=== PATIENT | female | born 1955 | race Caucasian/White ===

== ENCOUNTER 2021-11-28 14:46 | Outpatient (CLI) | payer OTHER, SELFPAY ==
--- NOTE | 2021-11-28 15:00 | CRLHL7_ITS ---
For Patients: As a result of the Century Cures Act, medical imaging exams and procedure reports are released immediately into your electronic medical record. You may view this report before your referring provider. If you have questions, please contact your health care provider. BILATERAL SCREENING MAMMOGRAM WITH COMPUTER-AIDED DETECTION AND TOMOSYNTHESIS TECHNIQUE: CC and MLO views were obtained. These mammographic images have been obtained using full-field digital technique. These mammographic images were interpreted with the benefit of computer-aided detection. Breast Tomosynthesis was used in this interpretation. COMPARISON FILM: 11/25/20, 11/24/19, 10/29/18. FINDINGS: There are scattered areas of fibroglandular density IMPRESSION: There is no radiographic evidence for malignancy. ASSESSMENT: BI-RADS Category 1: Negative RECOMMENDATION: Routine screening mammogram in 1 year. A lay language report of this examination will be provided to the patient. Dexter Elder M.D. Diagnostic Radiologist [email or web address] WING/Dictated by: Dexter Elder MD @ 11/29/2021 8:30:00 AM (Electronically Signed)
== END 2021-11-28 14:47 | disposition home or self-care (01) ==
LOC: MAMMO 14:49
PROVIDERS: PCP Family Medicine; Visit Provider Family Medicine
DX: Z12.31 Encounter for screening mammogram for malignant neoplasm of breast (principal)
CPT/HCPCS: 77063; 77067

== ENCOUNTER 2022-04-08 23:26 | Emergency (ER) | payer BC, SELFPAY ==
[2022-04-08 23:32] VITALS: BP 191/88; PULSE 86; RESP 22; TEMP 36.3; O2SAT 94; BMI 33.3
[2022-04-09] VITALS (10 sets, daily range): BP systolic 145–179; BP diastolic 76–88; PULSE 57–59; O2SAT 93–96
--- NOTE | 2022-04-09 00:49 | CRLHL7_ITS ---
For Patients: As a result of the Century Cures Act, medical imaging exams and procedure reports are released immediately into your electronic medical record. You may view this report before your referring provider. If you have questions, please contact your health care provider. INDICATION: abrupt Left sided frontal reoccurring headaches COMPARISON: none TECHNIQUE: A CT volumetric acquisition was performed of the brain without IV contrast. Please note that all CT scans at this facility use dose modulation, iterative reconstruction, and/or weight-based dosing when appropriate to reduce radiation dose to as low as reasonably achievable. FINDINGS: The CT images reveal a normal appearance of the cerebral ventricles and basal cisterns. There is no evidence of intracranial hemorrhage, tissue infarction or mass effect. The mastoid air cells and middle ear cavities are clear. The calvarium appears intact. Mild bilateral maxillary sinus disease with mucosal thickening. IMPRESSION: No acute intracranial pathology. No mass or hemorrhage. No hydrocephalus. Please note that all CT scans at this facility use dose modulation, iterative reconstruction, and/or weight-based dosing when appropriate to reduce radiation dose to as low as reasonably achievable. Dictated by Dexter Elder MD @ 04/09/2022 2:19:16 AM (Electronically Signed)
[2022-04-09] MEDS: 0.9 % SODIUM CHLORIDE 1000 ml 1,000 ML IV (01:03)
[2022-04-09] MEDS: ONDANSETRON 2 MG/ML inj 4 MG IVP (01:04)
[2022-04-09] MEDS: KETOROLAC 30 MG/ML inj IVP (01:04)
[2022-04-09 01:05] LABS: Basophils Absolute Auto 0.01 K/uL (0.00-0.30); Basophils Percent Auto 0.1 % (0.0-3.0); Eosinophils Absolute Auto 0.08 K/uL (0.00-0.50); Eosinophils Percent Auto 1.2 % (0.0-7.0); Hematocrit 37.9 % (33.0-51.0); Hemoglobin* 12.9 gm/dL (12.0-16.0); Immature Granulocytes Abs Auto 0.07 K/uL (0.00-0.30); Lymphocytes Percent Auto 18.6 % (20-44); Mean Corpuscular HGB Conc 34 gm/dL (32-36); Mean Corpuscular Hemoglobin 30 pg (26-34); Mean Corpuscular Volume 89 fL (80-100); Neutrophils Percent Auto 75.1 % (42.0-72.0); Platelet Count* 244 K/uL (140-440); RDW Coefficient of Variation % 12.6 % (11.5-15.5); Red Blood Count 4.28 m/uL (4.00-5.20); White Blood Count* 6.81 K/uL (4.50-11.00)
[2022-04-09 01:10] LABS: Slide Review Reflex No
[2022-04-09 01:17] LABS: Chloride* 104 mmol/L (96-114); Sodium* 136 mmol/L (135-149)
[2022-04-09 01:20] LABS: Blood Urea Nitrogen* 16 mg/dL (7-30); Carbon Dioxide* 25 mmol/L (20-32); Creatinine* 0.5 mg/dL (0.5-1.5); Est. Creatinine Clearance* 42.89; Estimated Glomerular Filt Rate 105 ml/min; Glucose* 129 mg/dL (60-115)
[2022-04-09 01:21] LABS: Calcium* 9.2 mg/dL (8.4-10.6)
[2022-04-09 01:22] LABS: D Dimer Quantitative* 0.46 ug/ml (0.00-0.50)
[2022-04-09 01:23] LABS: C Reactive Protein* < 0.5 mg/dL (0.5-1.0)
--- NOTE | 2022-04-09 01:38 | ED.NURSE ---
Patient ambulatory to
[2022-04-09 01:41] LABS: Erythrocyte SedimentationRate* 6 mm/hr (2-20)
--- NOTE | 2022-04-09 01:51 | ED_ITS ---
HPI - General Adult General Chief complaint: Nausea/Vomiting Stated complaint: Headache, Nausea Time Seen by Provider: 04/09/22 00:38 History of Present Illness HPI narrative: 66-year-old woman presenting to the emergency department with complaint of vomiting though with further question is clearly preceded by headache. Over the last month has had 3 or 4 sudden onset of left parietal temporal area headache rather severe then followed by numerous episodes of vomiting. She has been t ypically needing to rest and find a quiet space for some hours but that in addition to acetaminophen has not managed to control today's headache. Is having some burning in her stomach as well presumably from the vomiting. Headache has been present now for about 10 hours. I turn off the lights when I enter the room and this does seem to help but she would not note that she was particularly photophobic. No loss of sensation. No focal weakness. No discoordination. No is quite healthy and does not have a history of headaches prior to this last month. Does not wake from sleep with these headaches. They tend to be abrupt onset and self-limited. She has not been struggling with sinus disease. Does not have neck or back pain. Does not have high blood pressure. Is no longer smoking. No shortness of breath. No personal or family history of rheumatological/immunological disorders, no history of aneurysms or other intracerebral events. 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 Related Data Home Medications Medication Instructions Recorded Confirmed aspirin 81 mg capsule 81 mg PO DAILY 04/08/22 04/08/22 cholecalciferol (vitamin D3) .ROUTE 04/09/22 ferrous sulfate PO 04/09/22 [id number]-[id number]-FA-vit K PO 04/09/22 Previous Rx's Medication Instructions Recorded ondansetron 4 mg disintegrating 4 mg PO Q4-6H PRN nausea/vomiting 04/09/22 tablet #12 tabs Allergies Allergy/AdvReac Type Severity Reaction Status Date / Time ciprofloxacin Allergy Unknown Verified 04/08/22 23:39 erythromycin base Allergy Unknown Verified 04/08/22 23:39 hydrocodone Allergy Unknown Verified 04/08/22 23:39 Penicillins Allergy Unknown Verified 04/08/22 23:39 Sulfa (Sulfonamide Allergy Unknown Verified 04/08/22 23:39 Antibiotics) sulfamethoxazole Allergy Unknown Verified 04/08/22 23:39 [From Bactrim] trimethoprim [From Bactrim] Allergy Unknown Verified 04/08/22 23:39 codeine Allergy Vomiting Verified 04/08/22 23:39 Review of Systems Status of ROS: Reports: 10 or more systems reviewed and unremarkable except as noted in History and below [facility] Medical History Cervical cancer History of alcohol abuse Tubular adenoma of colon Surgical History H/O tubal ligation H/O: hysterectomy Social History Smoking Status: Former smoker Do you use any of these nicotine containing products: None Second hand tobacco smoke exposure: No How often do you have a drink containing alcohol: never AUDIT-C Alcohol total score: 0 Non-prescribed substance use: denies use Exam Narrative: Exam Narrative: Pleasant. NAD. [place] in style of conversation. Cranial nerves 2-12 look to be intact. Pupils are equal. No nystagmus. Head is atraumatic. No facial swelling erythema or tenderness. There is not particularly any tenderness or discrete tenderness in the area of the temples no pulsatile swelling/mass or erythema appreciated. She is breathing easily. Lungs are clear. There is no pain to palpation about the paracervical musculature the midline neck or back or trapezial musculature. Neck is supple. TMs are clear bilaterally. No sensory deficits apparent. Moving all extremities without difficulty. Well perfused peripherally. She has no lower extremity edema. Heart in a regular rate and rhythm without murmur rub or gallop. Abdomen is soft. No masses appreciated. Mildly tender in the epigastrium. Normal bowel sounds. Const: Vital Signs, click to edit/add: Vital Signs - 24 hr 04/08/22 23:32 Temperature 97.3 F L Pulse Rate [Pulse Oximeter] 86 Respiratory Rate 22 Blood Pressure [Le ft Upper Arm] 191/88 H Pulse Oximetry 94 Oxygen Delivery Me thod Room Air Documenting provider has reviewed patient's vital signs: yes Course Vital Signs Vital signs: Initial Vital Signs Temperature 97.3 F L 04/08/22 23:32 Temperature Source Temporal Artery Scan 04/08/22 23:32 Pulse Rate 86 04/08/22 23:32 Respiratory Rate 22 04/08/22 23:32 Blood Pressure 191/88 H 04/08/22 23:32 Blood Pressure Mean 122 04/08/22 23:32 Blood Pressure Position Supine 04/08/22 23:32 Pulse Oximetry 94 04/08/22 23:32 Oxygen Delivery Method 04/08/22 23:32 Vital Signs Temperature 97.3 F L 04/08/22 23:32 Pulse Rate 86 04/08/22 23:32 Respiratory Rate 22 04/08/22 23:32 Blood Pressure 191/88 H 04/08/22 23:32 Pulse Oximetry 94 04/08/22 23:32 Oxygen Delivery Method 04/08/22 23:32 Temperature 97.3 F L 04/08/22 23:32 Pulse Rate 86 04/08/22 23:32 Respiratory Rate 22 04/08/22 23:32 Blood Pressure 191/88 H 04/08/22 23:32 Pulse Oximetry 94 04/08/22 23:32 Oxygen Delivery Method 04/08/22 23:32 Medical Decision Making MDM Narrative Medical decision making narrative: Reassuring is that headaches are self-limiting. Concerning is new onset. She does not appear to have any sensory deficits. Offered treatment for her headache. IV is established was given L normal saline ketorolac and Zofran and on reassessment was already feeling notably improved. She did not feel if she needed anything specifically for the abdominal burning. I do think it is also reasonable to do some basic imaging looking for any suggestion of abnormality. Include head CT. Labs are also drawn looking for any red flags including screening for temporal arteritis. Labs are reassuring including normal ESR. By my read noncontrast head CT looks WNL. Preserved ventricle spaces. No evidence of acute abnormality. Over-read pending. Lab Data Labs: Lab Results 04/09/22 04/09/22 04/09/22 Range/Units 00:25 00:25 00:25 WBC 6.81 (4.50-11.00) K/uL RBC 4.28 (4.00-5.20) m/uL Hgb 12.9 (12.0-16.0) gm/dL Hct 37.9 (33.0-51.0) % MCV 89 (80-100) fL MCH 30 (26-34) pg MCHC 34 (32-36) gm/dL RDW Coeff of Ivett 12.6 (11.5-15.5) % Plt Count 244 (140-440) K/uL Neut % (Auto) 75.1 H (42.0-72.0) % Lymph % (Auto) 18.6 L (20-44) % [place] % (Auto) 4.0 (0.0-11.0) % Eos % (Auto) 1.2 (0.0-7.0) % Baso % (Auto) 0.1 (0.0-3.0) % Neut # (Auto) 5.10 (1.7-7.0) K/uL Lymph # (Auto) 1.30 (0.90-2.90) K/uL [place] # (Auto) 0.30 (0.00-0.90) K/UL Eos # (Auto) 0.08 (0.00-0.50) K/uL Baso # (Auto) 0.01 (0.00-0.30) K/uL ESR 6 (2-20) mm/hr D-Dimer Quant (PE/DVT) 0.46 (0.00-0.50) ug/ml Sodium (135-149) mmol/L Potassium (3.6-5.1) mmol/L Chloride (96-114) mmol/L Carbon Dioxide (20-32) mmol/L BUN (7-30) mg/dL Creatinine (0.5-1.5) mg/dL Estimated Creat Clear Estimated GFR ml/min Glucose (60-115) mg/dL Calcium (8.4-10.6) mg/dL C-Reactive Protein (0.5-1.0) mg/dL 04/09/22 Range/Units 00:25 WBC (4.50-11.00) K/uL RBC (4.00-5.20) m/uL Hgb (12.0-16.0) gm/dL Hct (33.0-51.0) % MCV (80-100) fL MCH (26-34) pg MCHC (32-36) gm/dL RDW Coeff of [place]ett (11.5-15.5) % Plt Count (140-440) K/uL Neut % (Auto) (42.0-72.0) % Lymph % (Auto) (20-44) % [place] % (Auto) (0.0-11.0) % Eos % (Auto) (0.0-7.0) % Baso % (Auto) (0.0-3.0) % Neut # (Auto) (1.7-7.0) K/uL Lymph # (Auto) (0.90-2.90) K/uL [place] # (Auto) (0.00-0.90) K/UL Eos # (Auto) (0.00-0.50) K/uL Baso # (Auto) (0.00-0.30) K/uL ESR (2-20) mm/hr D-Dimer Quant (PE/DVT) (0.00-0.50) ug/ml Sodium 136 (135-149) mmol/L Potassium 4.0 (3.6-5.1) mmol/L Chloride 104 (96-114) mmol/L Carbon Dioxide 25 (20-32) mmol/L BUN 16 (7-30) mg/dL Creatinine 0.5 (0.5-1.5) mg/dL Estimated Creat Clear 42.89 Estimated GFR 105 ml/min Glucose 129 H (60-115) mg/dL Calcium 9.2 (8.4-10.6) mg/dL C-Reactive Protein < 0.5 L (0.5-1.0) mg/dL Discharge Plan Discharge Clinical Impression: Headache Patient Disposition: Home w/ Parent or Adult Condition: Improved Instructions: Acute Headache (ED) Additional Instructions: Do stay well-hydrated trying to drink 2-3 L of water daily. Try to get in little heart pumping exercise every day as well. Get regular and quality sleep. Can try Excedrin equivalent medication for relief of headache in the future; includes acetaminophen, aspirin and caffeine. It might be worth scheduling follow-up in clinic to explore further potential cause. Zofran to pharmacy if needed. Return for recurrence of severe unremitting headache, intractable vomiting, associated fever, new and focal weakness, discoordination. Prescriptions: New ondansetron 4 mg tablet,disintegrating 4 mg PO Q4-6H PRN (Reason: nausea/vomiting) Qty: 12 0RF No Action aspirin 81 mg capsule 81 mg PO DAILY [id number]-fhh-xoir-FA-vit K [Adults Multivitamin] PO ferrous sulfate [Iron (ferrous sulfate)] PO cholecalciferol (vitamin D3) .ROUTE Follow Up/Referrals: Bc Chavez MD [Primary Care Provider] - Stand Alone Forms: [email or web address] Info Instructions
== END 2022-04-09 02:32 | disposition home or self-care (01) ==
LOC: ED 04-09 02:32
PROVIDERS: Emergency Provider Family Medicine; PCP Family Medicine
DX: R51.9 Headache, unspecified (principal)
CPT/HCPCS: 36415; 70450; 80048; 85025; 85379; 85651; 86140; 96361; 96374; 96375; 99284; J1885; J2405; J7030

== ENCOUNTER 2022-06-22 07:30 | Outpatient (CLI) | payer BC, SELFPAY | END 2022-06-22 07:31 | disposition home or self-care (01) | LOC: NFLDREF 12:05 | PROVIDERS: PCP Family Medicine; Referring Provider Family Medicine; Visit Provider Family Medicine | DX: Z00.00 Encounter for general adult medical examination without abnormal findings (principal); E78.5 Hyperlipidemia, unspecified; E66.9 Obesity, unspecified | CPT/HCPCS: 80053; 80061 ==

== ENCOUNTER 2022-07-12 15:17 | Outpatient (CLI) | payer BC, SELFPAY ==
--- NOTE | 2022-07-12 15:30 | CRLHL7_ITS ---
For Patients: As a result of the Century Cures Act, medical imaging exams and procedure reports are released immediately into your electronic medical record. You may view this report before your referring provider. If you have questions, please contact your health care provider. DXA BONE MINERAL DENSITY STUDY Reason for exam: Postmenopausal Current height (in): 61. Weight (lb): 173. Menopause age: 34. Ethnicity: White. 1. Have you had a previous hip or vertebral fracture? No. 2. Have you had any fractures during your adult life which did not result from significant trauma (e.g., auto accident)? No. 3. Did either of your parents have a hip fracture? No. 4. Do you smoke? No. 5. Have you ever taken Glucocorticoids? No. 6. Do you have rheumatoid arthritis? No. 7. Do you have secondary osteoporosis? No. 8. Do you drink 3 or more alcoholic drinks per day? No. 9. Are you being treated for osteoporosis? No. 10. Have you ever taken any of the following medications: Actonel, Evista, Fosamax, Miacalcin, Reclast, Boniva, Forteo, HRT (i.e., estrogen/hormone therapy), Protelos, Prolia, Vitamin D, Calcium, other ??? please specify. ANSWER: No. 11. Do you have any of the following medical conditions: Anorexia or bulimia, asthma or emphysema, end stage renal disease, hyperparathyroidism, any seizure disorders, cancer, inflammatory bowel diseases, hysterectomy, other ??? please specify. ANSWER: Yes, hysterectomy. 12. What was your maximum height (inches)? 62. 13. Do you perform weight bearing exercise regularly? Yes. 14. Do you regularly consume dairy products? Yes. 15. Do you drink caffeinated beverages? Yes. If female: 16. At what age did your period start? 15. 17. Are you premenopausal? No. 18. How many full-term pregnancies have you had? 2. 19. Have you ever missed your period for more than 6 months in a row (not including or menopause)? No. TECHNIQUE: Bone mineral density study was performed using the [employer]. FINDINGS: The results of the study expressed as bone mineral density (BMD) are as follows: Lumbar spine L1 to L4: BMD: 1.105 g/cm2. T-score: 0.5. Z-score: 2.3 Neck Left: BMD: 0.957 g/cm2. T-score: 1.0. Z-score: 2.5 Right: BMD: 0.917 g/cm2. T-score: 0.6. Z-score: 2.1 Total Left: BMD: 1.051 g/cm2. T-score: 0.9. Z-score: 2.1 Right: BMD: 0.963 g/cm2. T-score: 0.2. Z-score: 1.4 IMPRESSION: Normal bone density. Dexter Elder M.D. Diagnostic Radiologist [email or web address] DSM/judith jj/Dictated by: Dexter Elder MD @ 07/13/2022 9:52:00 AM (Electronically Signed)
== END 2022-07-12 15:18 | disposition home or self-care (01) ==
LOC: RAD 15:18
PROVIDERS: PCP Family Medicine; Visit Provider Family Medicine
DX: Z13.820 Encounter for screening for osteoporosis (principal); Z78.0 Asymptomatic menopausal state
CPT/HCPCS: 77080

== ENCOUNTER 2022-07-17 10:41 | Outpatient (CLI) | payer BC, SELFPAY | END 2022-07-17 10:42 | disposition home or self-care (01) | LOC: OP CLINIC 10:42 | PROVIDERS: PCP Family Medicine; Visit Provider Surgery | DX: Z12.11 Encounter for screening for malignant neoplasm of colon (principal); K62.1 Rectal polyp; Z86.010 Personal history of colon polyps | CPT/HCPCS: 45380; 88305; 99153; J0780; J2250; J2405; J3010 ==

== ENCOUNTER 2022-12-21 07:30 | Outpatient (CLI) | payer BC, SELFPAY ==
--- NOTE | 2022-12-21 07:45 | CRLHL7_ITS ---
For Patients: As a result of the Cures Act, medical imaging exams and procedure reports are released immediately into your electronic medical record. You may view this report before your referring provider. If you have questions, please contact your health care provider. BILATERAL SCREENING MAMMOGRAM WITH COMPUTER-AIDED DETECTION AND TOMOSYNTHESIS TECHNIQUE: CC and MLO views were obtained. These mammographic images have been obtained using full-field digital technique. These mammographic images were interpreted with the benefit of computer-aided detection. Breast Tomosynthesis was used in this interpretation. COMPARISON FILM: 11/28/21, 11/25/20, 11/24/19. FINDINGS: There are scattered areas of fibroglandular density IMPRESSION: There is no radiographic evidence for malignancy. ASSESSMENT: BI-RADS Category 1: Negative RECOMMENDATION: Routine screening mammogram in 1 year. A lay language report of this examination will be provided to the patient. Dexter Elder M.D. Diagnostic Radiologist [email or web address] [email or web address] Transcribed: 6:11 p.[email or web address] wong/Dictated by: Dexter Elder MD @ 12/21/2022 11:54:00 AM (Electronically Signed)
== END 2022-12-21 07:31 | disposition home or self-care (01) ==
LOC: MAMMO 07:31
PROVIDERS: PCP Family Medicine; Visit Provider Family Medicine
DX: Z12.31 Encounter for screening mammogram for malignant neoplasm of breast (principal)
CPT/HCPCS: 77063; 77067

== ENCOUNTER 2023-06-21 07:50 | Outpatient (CLI) | payer BC, SELFPAY | END 2023-06-21 07:51 | disposition home or self-care (01) | LOC: NFLDREF 13:28 | PROVIDERS: PCP Family Medicine; Referring Provider Family Medicine; Visit Provider Family Medicine | DX: E78.5 Hyperlipidemia, unspecified (principal); Z13.228 Encounter for screening for other metabolic disorders | CPT/HCPCS: 80053; 80061 ==

== ENCOUNTER 2024-06-30 07:50 | Outpatient (CLI) | payer MEDICARE, BC, SELFPAY | END 2024-06-30 07:51 | disposition home or self-care (01) | LOC: NFLDREF 07-04 03:18 | PROVIDERS: PCP Family Medicine; Referring Provider Family Medicine; Visit Provider Family Medicine | DX: E78.5 Hyperlipidemia, unspecified (principal); E66.9 Obesity, unspecified | CPT/HCPCS: 80053; 80061 ==

== ENCOUNTER 2024-09-28 15:12 | Outpatient (CLI) | payer MEDICARE, BC, SELFPAY ==
--- NOTE | 2024-09-28 15:20 | CRLHL7_ITS ---
For Patients: As a result of the Century Cures Act, medical imaging exams and procedure reports are released immediately into your electronic medical record. You may view this report before your referring provider. If you have questions, please contact your health care provider. INDICATION: BILATERAL SCREENING MAMMOGRAM, ASYMPTOMATIC 69 Y/O FEMALE COMPARISON: 12/21/2022, 12/08/2021, 12/05/2020 TECHNIQUE: Digital mammogram in CC and MLO projections including computer-aided detection (CAD) and tomosynthesis. BREAST COMPOSITION: There are scattered areas of fibroglandular density. FINDINGS: No suspicious findings. ASSESSMENT: BI-RADS 1 Negative RECOMMENDATION: Annual screening mammogram. A lay language report of this examination will be provided to the patient. Dictated by: Dexter Elder MD @ 09/30/2024 09:48:51 (Electronically Signed)
== END 2024-09-28 15:13 | disposition home or self-care (01) ==
LOC: MAMMO 15:13
PROVIDERS: PCP Family Medicine; Visit Provider Family Medicine
DX: Z12.31 Encounter for screening mammogram for malignant neoplasm of breast (principal)
CPT/HCPCS: 77063; 77067